=== PATIENT | female | born 1960 | race Caucasian/White ===

== ENCOUNTER 2020-05-11 13:02 | Emergency (ER) | payer OTHER ==
[~2020-05-11] VITALS: Ht 175.3 cm; Wt 74.8 kg
--- NOTE | 2020-05-11 13:10 | NUR ---
CAME IN FOR WORSENING CHEST PAIN X 1 WEEK, UPON ARRIVAL IN ED, PATIENT FEELS MID-CHEST HEAVINESS RADIATIONG TO NECK. PATIENT ALSO C/O HEADACHE. TO ER BED 10, HOOKED TO VOCATIONAL NURSING INSTRUCTOR, BP CUFF AND POX. CHANGED TO HOSP GOWN, WARM BLANKET PROVIDED, PATIENT AAO x 4. BREATHING EVEN AND UNLABORED. DR ADAN AT BEDSIDE
[2020-05-11] MEDS ORDERED: TRAM50TA2 PO (13:29)
[2020-05-11 13:31] LABS: BASOPHILS # (AUTO) 0.1 /CMM (0.0-0.2); EOSINOPHILS % (AUTO) 0.6 % (0.0-6.0); HEMATOCRIT 45 % (33-45); HEMOGLOBIN 15.3 g/dL (11.5-14.8); LYMPHOCYTES % (AUTO) 27.9 % (20.0-44.0); MEAN CORPUSCULAR HGB CONC 34 g/dl (31.0-36.0); MEAN CORPUSCULAR VOLUME 90 fL (82-100); MONOCYTES # (AUTO) 0.5 /CMM (0.1-1.30); MONOCYTES % (AUTO) 7.6 % (2.0-12.0); NEUTROPHILS # (AUTO) 4.5 /CMM (1.8-8.9); NEUTROPHILS % (AUTO) 62.9 % (43.0-81.0); PLATELET COUNT (AUTO) 186 /CMM (150-450); WHITE BLOOD COUNT (AUTO) 7.2 K/uL (4.3-11.0)
[2020-05-11 13:36] VITALS: BP 152/100
--- NOTE | 2020-05-11 13:36 | NUR ---
IV removed. Catheter intact and site benign. Pressure and 4x4 applied to site. No bleeding noted.Patient discharged to home in stable condition. Written and verbal after care instructions given. Patient verbalizes understanding of instruction.
[2020-05-11 13:39] LABS: CALCIUM, SERUM 9.3 mg/dL (8.5-10.1); CARBON DIOXIDE 28 mmol/L (21-32); CHLORIDE 103 mmol/L (98-107); CREATININE 0.9 mg/dL (0.6-1.3); GLUCOSE 92 mg/dL (74-106); POTASSIUM 3.4 mmol/L (3.5-5.1); SODIUM SERUM 140 mmol/L (136-145); UREA NITROGEN, BLOOD 14 mg/dL (7-18)
== END 2020-05-11 13:37 | disposition home or self-care (01) ==
LOC: ER 13:07
DX: R07.89 Other chest pain (principal); I10 Essential (primary) hypertension; F17.200 Nicotine dependence, unspecified, uncomplicated; Z85.3 Personal history of malignant neoplasm of breast; Z79.899 Other long term (current) drug therapy
CPT/HCPCS: 36415; 80048-TC; 84484-TC; 85025-TC

== ENCOUNTER 2020-05-13 11:28 | Emergency (ER) | payer OTHER ==
[~2020-05-13] VITALS: Ht 175.3 cm; Wt 74.8 kg
[~2020-05-13 11:28] MED LIST: TRAM50TA2 PO
--- NOTE | 2020-05-13 11:44 | NUR ---
BIBS FROM HOME TO ER BED 1. AAOX4. NOT IN RESP DISTRESS, EVEN AND UNLABORED, TALKING IN FULL SENTENCES. AMBULATORY. CAME IN FOR GEN BODY ITCHING AND LOWER ABD RED SPOT THAT STARTED TODAY. PT REPORTS THAT SHE STARTED TAKING TRAMADOL ON MONDAY. NO AIRWAY COMPROMISE, PT SATTING @ 99%. PT ON MONITOR. AWAITING MD FOR EVAL.
[2020-05-13] MEDS ORDERED: diphenhydrAMINE HCL 25 MG CAPSULE PO ONE (12:00)
[2020-05-13] MEDS ORDERED: diphenhydrAMINE HCL 50 MG CAPSULE ONE (12:00)
--- NOTE | 2020-05-13 12:32 | NUR ---
Patient discharged to home in stable condition. Written and verbal after care instructions given. Patient verbalizes understanding of instruction. Pt ambulatory with a steady gait
[2020-05-13 12:35] VITALS: BP 150/87
== END 2020-05-13 12:35 | disposition home or self-care (01) ==
LOC: ER 11:33
DX: S30.861A Insect bite (nonvenomous) of abdominal wall, initial encounter (principal); S50.862A Insect bite (nonvenomous) of left forearm, initial encounter; I10 Essential (primary) hypertension; F17.200 Nicotine dependence, unspecified, uncomplicated; Z88.6 Allergy status to analgesic agent; Z88.8 Allergy status to other drugs, medicaments and biological substances; Z79.899 Other long term (current) drug therapy; W57.XXXA Bitten or stung by nonvenomous insect and other nonvenomous arthropods, initial encounter; Y93.89 Activity, other specified; Y92.89 Other specified places as the place of occurrence of the external cause; Y99.8 Other external cause status
CPT/HCPCS: 99282; Q0163

== ENCOUNTER 2020-05-23 09:09 | Emergency (ER) | payer OTHER ==
[~2020-05-23] VITALS: Ht 182.9 cm; Wt 77.6 kg
--- NOTE | 2020-05-23 09:09 | NUR ---
PT BIB SELF C/O CHEST PAIN STARTED THIS MORNING. PT IS AAOX4, NOT IN RESPIRATORY DISTRESS, HOOKED TO ROUGE MIXER, KEPT RESTED AND COMFORTABLE. WILL CONTINUE TO MONITOR.
--- NOTE | 2020-05-23 09:30 | NUR ---
DR. AHMADI AT BEDSIDE FOR EVAL.
--- NOTE | 2020-05-23 09:42 | NUR ---
PHLEB AT BEDSIDE FOR BLOOD DRAW.
[2020-05-23] MEDS ORDERED: MORPHINE SULFATE INJ 2 MG/ML DISP.SYRIN ONE (09:50)
--- NOTE | 2020-05-23 09:51 | NUR ---
NUCLEAR REACTOR OPERATOR AT BEDSIDE FOR XRAY.
[2020-05-23] MEDS ORDERED: MORPHINE SULFATE INJ 2 MG/ML DISP.SYRIN IV ONE (10:00)
[2020-05-23] MEDS ORDERED: MIDAZOLAM HCL 2 MG/2ML VIAL IV ONE (10:00)
[2020-05-23 10:06] LABS: BASOPHILS # (AUTO) 0.1 /CMM (0.0-0.2); BASOPHILS % (AUTO) 0.9 % (0.0-2.0); EOSINOPHILS % (AUTO) 0.9 % (0.0-6.0); HEMATOCRIT 45 % (33-45); HEMOGLOBIN 15.3 g/dL (11.5-14.8); LYMPHOCYTES # (AUTO) 1.2 /CMM (0.8-4.8); LYMPHOCYTES % (AUTO) 19.5 % (20.0-44.0); MEAN CORPUSCULAR HGB CONC 34 g/dl (31.0-36.0); MEAN CORPUSCULAR VOLUME 91 fL (82-100); MONOCYTES # (AUTO) 0.3 /CMM (0.1-1.30); MONOCYTES % (AUTO) 5.5 % (2.0-12.0); NEUTROPHILS # (AUTO) 4.6 /CMM (1.8-8.9); NEUTROPHILS % (AUTO) 73.2 % (43.0-81.0); PLATELET COUNT (AUTO) 185 /CMM (150-450); RED BLOOD CELL COUNT(AUTO) 4.98 MIL/uL (4.0-5.2); WHITE BLOOD COUNT (AUTO) 6.3 K/uL (4.3-11.0)
[2020-05-23 10:34] LABS: CALCIUM, SERUM 9.2 mg/dL (8.5-10.1); CARBON DIOXIDE 28 mmol/L (21-32); CHLORIDE 104 mmol/L (98-107); CREATININE 0.8 mg/dL (0.6-1.3); GLUCOSE 116 mg/dL (74-106); POTASSIUM 3.8 mmol/L (3.5-5.1); SODIUM SERUM 143 mmol/L (136-145); UREA NITROGEN, BLOOD 12 mg/dL (7-18)
[2020-05-23 10:40] LABS: ALANINE AMINOTRANSFERASE 17 U/L (12-78); ALBUMIN 4.1 g/dL (3.4-5.0); ALKALINE PHOSPHATASE 98 U/L (46-116); ASPARTATE AMINOTRANSFERASE 16 U/L (15-37); BILIRUBIN,DIRECT 0.1 mg/dL (0.0-0.2); BILIRUBIN,TOTAL 0.4 mg/dL (0.2-1.0); TOTAL PROTEIN, SERUM 7.3 g/dL (6.4-8.2)
[2020-05-23 10:52] VITALS: BP 136/92
== END 2020-05-23 10:52 | disposition home or self-care (01) ==
LOC: ER 09:12
DX: R07.89 Other chest pain (principal); R00.0 Tachycardia, unspecified; I10 Essential (primary) hypertension; F17.200 Nicotine dependence, unspecified, uncomplicated; Z85.3 Personal history of malignant neoplasm of breast; Z88.6 Allergy status to analgesic agent; Z88.5 Allergy status to narcotic agent; Z79.899 Other long term (current) drug therapy
CPT/HCPCS: 36415; 71045; 80048; 80076; 84484; 85025; 93005; 96374; 99285; J2270

== ENCOUNTER 2022-09-02 14:36 | Emergency (ER) | payer MEDICARE ==
[~2022-09-02] VITALS: Ht 175.3 cm; Wt 79.4 kg
[~2022-09-02 14:36] MED LIST changes: +DOCU-141 PO; +POLY17PO4 PO
--- NOTE | 2022-09-02 14:44 | NUR ---
TO ER 10 AWAITSILVIA AGUDELO
--- NOTE | 2022-09-02 14:45 | NUR ---
BIB [facility] 30 FROM HOME, CHRONIC NECK/THROAT PAIN, "RAN OUT OF MY DILAUDID"
--- NOTE | 2022-09-02 14:50 | NUR ---
AT BEDSIDE FOR EVAL
--- NOTE | 2022-09-02 15:15 | NUR ---
PATIENT WAS DISCHARGED IN EMERGENCY DEPT. EXPLAINED THE INSTRUCTIONS PREPARED BY EMD BUT REFUSED TO SIGN THE DISCHARGE PAPER.
[2022-09-02 15:18] VITALS: BP 151/81
== END 2022-09-02 15:18 | disposition home or self-care (01) ==
LOC: ER 14:43
DX: G89.29 Other chronic pain (principal); M54.2 Cervicalgia; I10 Essential (primary) hypertension; F17.200 Nicotine dependence, unspecified, uncomplicated; Z79.899 Other long term (current) drug therapy; Z88.5 Allergy status to narcotic agent; Z88.1 Allergy status to other antibiotic agents